=== PATIENT | male | born 1955 | race Caucasian/White ===

== ENCOUNTER 2017-10-07 06:55 | Day surgery (SDC) | payer MEDICARE ==
[~2017-10-07] VITALS: Ht 188 cm; Wt 97.0 kg
[~2017-10-07 06:55] MED LIST: APIX5TAB PO; ASCO10004 PO; ASPI-496 PO; CARB200T4 PO; CHOL200074 PO; CYAN25009 PO; DIGO250T PO; DIGO250T12 PO; GABA-826 PO; HYDR25TA6 PO; LIPOIC ACID PO; LYSI500T3 PO; METH-356 PO; METH5TAB2 PO; METO-95 PO; PT WILL BRING LIST; SAW/1TAB2 PO; SERT100T5 PO; SOTA120T26 PO; SOTA160T PO; SUMA100T3 PO; SUMA20SP NAS; TIZA2TAB PO; TOPI100T24 PO; [UNRECOGNIZED DRUG - OTHER] PO
[2017-10-07 07:15] VITALS: BP 164/117
[2017-10-07] MEDS ORDERED: OXYcodone/APAP 10/325MG TABLET ONE (10:56)
[2017-10-07] MEDS ORDERED: OXYcodone/APAP 10/325MG TABLET PO ONE (11:00)
== END 2017-10-07 12:30 ==
LOC: RAD 06:55
PROVIDERS: ATTEND Orthopaedic Surgery Orthopaedic Surgery of the Spine
DX: M47.812 Spondylosis without myelopathy or radiculopathy, cervical region (principal); I10 Essential (primary) hypertension; Z87.891 Personal history of nicotine dependence
CPT/HCPCS: 62284; 72126; Q9967; Q9965

== ENCOUNTER → 2017-11-07 | Outpatient (CLI) | payer MEDICARE ==
[~2017-11-07] MED LIST changes: +REGADENOSON 0.4 MG/5 ML SYRINGE ONE
== END | disposition home or self-care (01) ==
LOC: CFH 08:46
PROVIDERS: ATTEND Nurse Practitioner Family
DX: Z01.810 Encounter for preprocedural cardiovascular examination (principal)
CPT/HCPCS: 78452; 93017; A9502; J2785

== ENCOUNTER → 2018-05-19 | Outpatient (CLI) | payer MEDICARE ==
[~2018-05-19] MED LIST changes: -REGADENOSON 0.4 MG/5 ML SYRINGE ONE
== END | disposition home or self-care (01) ==
LOC: CFH 08:47
PROVIDERS: ATTEND Family Medicine
DX: K59.00 Constipation, unspecified (principal); N20.0 Calculus of kidney; Z95.0 Presence of cardiac pacemaker
CPT/HCPCS: 74018

== ENCOUNTER 2018-10-05 08:02 | Emergency (ER) | payer MEDICARE ==
[~2018-10-05] VITALS: Ht 188 cm; Wt 108.0 kg
[2018-10-05 08:50] LABS: BASOPHILS # (AUTO) 0.02 x10^3/uL (0-0.1); BASOPHILS % (AUTO) 0 % (0-1); EOSINOPHILS # (AUTO) 0.12 x10^3/uL (0-0.4); EOSINOPHILS % (AUTO) 2 % (1-7); LYMPHOCYTES # (AUTO) 1.56 x10^3/uL (1-3.4); LYMPHOCYTES % (AUTO) 26 % (22-44); MD NO; MEAN CORPUSCULAR HEMOGLOBIN 35.1 pg (27.5-34.5); MEAN CORPUSCULAR HGB CONC 34.1 g/dL (33.2-36.2); MEAN CORPUSCULAR VOLUME 102.9 fL (81-97); MEAN PLATELET VOLUME 7.1 fL (7.4-10.4); MONOCYTES # (AUTO) 0.52 x10^3/uL (0.2-0.8); MONOCYTES % (AUTO) 9 % (2-9); NEUTROPHILS # (AUTO) 3.72 x10^3/uL (1.8-6.8); NEUTROPHILS % (AUTO) 63 % (42-75); PLATELET COUNT 230 x10^3/uL (130-400); RED BLOOD COUNT 4.64 x10^6/uL (4.38-5.82); RED CELL DISTRIBUTION WIDTH 13.8 % (9.4-14.8)
[2018-10-05 09:00] LABS: ALBUMIN 3.8 g/dL (3.4-5.0); ANION GAP 6 mmol/L (5-15); CALCIUM 9.1 mg/dL (8.5-10.1); CHLORIDE 110 mmol/L (98-107); CREATININE 1.03 mg/dL (0.7-1.3)
[2018-10-05 09:08] LABS: ALANINE AMINOTRANSFERASE 20 U/L (12-78); ALKALINE PHOSPHATASE 82 U/L (45-117); BILIRUBIN,TOTAL 0.7 mg/dL (0.2-1.0); TOTAL PROTEIN 7.1 g/dL (6.4-8.2)
[2018-10-05] MEDS ORDERED: OMNIPAQUE 350 MG/ML, 100ML BOTTLE ONE (09:34)
[2018-10-05 11:00] LABS: CULTURE INDICATED? NO; MICROSCOPIC NOT IND
[2018-10-05 11:55] VITALS: BP 151/94
== END 2018-10-05 11:57 | disposition home or self-care (01) ==
LOC: ED 08:46
DX: R33.9 Retention of urine, unspecified (principal); I48.91 Unspecified atrial fibrillation; Z95.0 Presence of cardiac pacemaker
CPT/HCPCS: 36415; 74177; 80053; 81003; 83690; 85025; 99284; Q9967